=== PATIENT | female | born 1950 | race Caucasian/White ===

== ENCOUNTER 2022-01-11 12:00 | Outpatient (RCR) | payer MEDICARE, SELFPAY ==
--- NOTE | 2021-12-15 11:12 | PT.OPDNX ---
PT [facility] Daily Note PT [facility] Daily Note Start: 12/15/21 07:39 Freq: Status: Active Protocol: Document 12/15/21 07:39 RICO (Rec: 12/15/21 11:11 RICO [id number]) E-Signed By Laurie Barraza, PT PT OP Daily Progress Note Visit Information Note Type Recert/Progress Note Visit Number 11 Running Total Visit Number 11 Insurance Authorized Visits - Physician Authorized Visits As needed Insurance Information Recert Due Date 02/16/22 Insurance Name Medicare B,[employer] Medical Diagnosis Closed right proximal humerus fracture Treating Diagnosis Right shoulder pain, limited right shoulder ROM, gross R shoulder weakness Referring MD Joseph Subjective Subjective Patient reports HEP is going well however feels that she may have overdone activity with gardening as right shoulder was quite sore following a couple of hours in the garden. May be more related to lifting bird bath. Soreness lasted for about a day following. Did not ice following. She has not lifted anything more than 10lb at this time. Objective Other/Pertinent Objective Standing ROM -ER0: 80 -ER90: 65 -Functional ER: C3 -Abd: 149 -FF: 158 -Functional IR: L2 UE Strength (R/L): -ER0: R: 4-/5, L: 5-/5 -IR0: R: 4/5, L: 5/5 -FF: R: 4-/5, L: 5/5 -Abduction: R: 4/5, L: 5-/5 -Mid Trap: R: 4+/5, L: 5-/5 -Lower Trap: R: 4/5, L: 4+/5 Floor to waist lift: 15lb with good technique, fatigues after 3 repetitions Functional Test Performed & Score QuickDASH -IE 40.9 -12/15/21 25 Patient Instructed in Risks/Benefits Yes Therapeutic Exercise Therapeutic Exercise Minutes (minutes) 42 Therapeutic Exercise: To Restore UE bike 4 min: 2 fwd, 2 bwd Functional Status PNF D2 flexion: progressed to orange TB 2x10 Standing horizontal abduction: orange TB 2x10 Standing ER0: orange TB 2x10 Standing FF w/yellow TB ER resistance 2lb 2x10 Standing scaption 2lb 2x10 Floor to waist lift: 10lb x6, 15lb x3 Countertop push-up 2x10 Treatment Minutes Timed Code Treatment Minutes 42 Total Treatment Time 42 Billing Units Therapeutic Exercise Units 3 Assessment/Impression Assessment/Impression Patient demonstrates significant functional improvement from 40.9 to 25 on QuickDASH with gradual return to dressing, repetitive reaching and lifting small weight with R UE. Objectively she is demonstrating WNL shoulder ROM in all directions and gradual improvement in abd/IR strength however considerably weaker on right with flexion and external rotation strength. 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 internal rotation. Continued to review and progress HEP today to address remaining functional impairments. Patient would benefit from continued skilled PT to progress towards remaining functional goals including lifting 40lb boxes for work duties, improving sleep tolerance, and return to all daily chief engineer drilling and recovery. Anticipate patient to progress towards remaining goals every other week for 3 more sessions. Plan of Care Physical Therapy Goals In 6 weeks (10/29/21) Improve ER0 to 80 to improve ease of transfers and ADL's MET Improve FF tolerance to 140 deg increase ease of ADL's / daily care with <2/10 pain MET In 12 weeks (12/10/21)-updated goals to be met by 02/16/22 Pt will exhibit 15-20 point improvement in QuickDASH Outcome measure to demonstrate functional improvement and progress towards goals. 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 Able to progress to 15lb 12/15/21 Pt will exhibit RC and Scapular Stab strength of at least 4+/5 to allow progression back to normal and desired activities without pain Most limited with ER0 Daily Plan of Care Change in Frequency Daily Plan of Care Comments Every other week for 3 more sessions: re-cert date 02/16/22 Recertification Information Clinical Certification # #[id number] Patient's H.I.C.N.# # Initial Certification Date 09/17/21 Most Recent Visit 12/15/21 Recertification Start Date 12/15/21 Recertification Due Date 02/16/22 Reasons to Continue Skilled Therapy Patient progressing well with full return of AROM and gradual repetitive reaching however still progressing towards full RC/periscapular strength in order to lift up to 40lb for 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
== END 2022-01-11 13:01 | disposition home or self-care (01) ==
PROVIDERS: PCP Physician Assistant Medical; Visit Provider Orthopaedic Surgery Sports Medicine
DX: M25.511 Pain in right shoulder (principal); S42.291A Other displaced fracture of upper end of right humerus, initial encounter for closed fracture; Z51.89 Encounter for other specified aftercare
CPT/HCPCS: 97110